=== PATIENT | male | born 1990 | race Caucasian/White ===

== ENCOUNTER 2024-04-13 23:49 | Inpatient (IN) | payer MEDICAID ==
[2024-04-14] MEDS: Ondansetron 4 MG/2 ML SDV IVPUSH ONE ×2 (00:10→08:03)
[2024-04-14] MEDS: Sodium Chloride 0.9% 1,000 ML IV SCH ×2 (00:15→03:08)
[2024-04-14] MEDS: Sodium Chloride 0.9% 10 ML Syringe FLUSH PRN (00:27)
[2024-04-14] MEDS: LORazepam 2 MG/ML SDV IVPUSH ONE (00:27)
[2024-04-14 00:30] LABS: HEMATOCRIT 49.6 % (38.3-50.1); HEMOGLOBIN 17.4 g/dL (12.9-17.7); MEAN CORPUSCULAR HGB CONC 35.1 g/dL (28.7-35.3); MEAN CORPUSCULAR VOLUME 105.6 fL (80.8-98.7); MEAN PLATELET VOLUME 8.2 fL (6.7-11.0); PLATELET COUNT,PLT 169 x10(3)uL (117-477); RED CELL DISTRIBUTION WIDTH 13.1 % (12.4-15.0); WHITE BLOOD CELL COUNT,WBC 12.3 x10-3/uL (3.2-10.1)
[2024-04-14 00:38] LABS: BLOOD UREA NITROGEN,BUN 5 mg/dL (7-18); BUN/CREATININE RATIO 7.1 (9-20); CALCIUM 8.9 mg/dL (8.6-10.2); CARBON DIOXIDE,CO2 24 mmol/L (21-32); CHLORIDE,CL 94 mmol/L (100-110); CREATININE 0.7 mg/dL (0.70-1.30); ESTIMATED GFR 125 mL/min (>60); GLUCOSE RANDOM 170 mg/dL (80-116); POTASSIUM,K 3.2 mmol/L (3.5-5.3); SODIUM,NA 135 mmol/L (135-145)
[2024-04-14] MEDS: Morphine 2 MG/ML SYRINGE IVPUSH ONE (00:41)
[2024-04-14 00:44] LABS: A/G RATIO 1.1; ALANINE AMINOTRANSFERASE,ALT 82 U/L (12-36); ALKALINE PHOSPHATASE 116 IU/L (56-112); ASPARTATE AMNIOTRANSFERASE,AST 126 IU/L (5-25); BILIRUBIN TOTAL 2.1 mg/dL (0.1-1.3); PROTEIN TOTAL,TP 7.7 g/dL (6.0-8.0)
[2024-04-14 00:54] LABS: BAND PERCENT MAN 4 % (0-6); LYMPHOCYTES PERCENT MAN 11 % (13-37); MONOCYTES PERCENT MAN 6 % (4-12); SEG NEUTROPHILS PERCENT MAN 79 % (46-82)
[2024-04-14] MEDS: Iopamidol 755 Mg/ML 100 ML Bottle IV SCH (01:18)
[2024-04-14] MEDS ORDERED: LORazepam 2 MG/ML SDV IVPUSH PRN ×2 (01:36→01:45)
[2024-04-14] MEDS ORDERED: Ondansetron 4 MG/2 ML SDV IV PRN (01:36)
[2024-04-14] MEDS: Sodium Chloride 0.9% 1,000 ML IV ONE (01:43)
[2024-04-14] MEDS ORDERED: Enoxaparin 40 MG/0.4 ML Syringe SUBCUT SCH (01:45)
[2024-04-14] MEDS: HYDROmorphone 2 MG/ML SDV IVPUSH PRN (01:55)
[2024-04-14] MEDS: Enoxaparin 40 MG/0.4 ML Syringe SUBCUT SCH (02:46)
[2024-04-14] MEDS: Pantoprazole 40 MG Vial IVPUSH ONE (03:07)
[2024-04-14] MEDS: Ondansetron 4 MG/2 ML SDV IV PRN (04:37)
[2024-04-14] MEDS: LORazepam 2 MG/ML SDV IVPUSH PRN ×2 (04:46→09:38)
[2024-04-14 06:41] LABS: MEAN CORPUSCULAR HEMOGLOBIN 37.3 pg (27.0-33.3); MEAN CORPUSCULAR HGB CONC 35.5 g/dL (28.7-35.3); MEAN CORPUSCULAR VOLUME 105.2 fL (80.8-98.7); MEAN PLATELET VOLUME 8.5 fL (6.7-11.0); PLATELET COUNT,PLT 131 x10(3)uL (117-477); RED BLOOD CELL COUNT 4.28 x10(6)uL (3.90-5.90); WHITE BLOOD CELL COUNT,WBC 9.1 x10-3/uL (3.2-10.1)
[2024-04-14 06:51] LABS: ALANINE AMINOTRANSFERASE,ALT 68 U/L (12-36); ALBUMIN 3.3 g/dL (3.5-5.2); ALKALINE PHOSPHATASE 96 IU/L (56-112); ASPARTATE AMNIOTRANSFERASE,AST 93 IU/L (5-25); BILIRUBIN TOTAL 1.8 mg/dL (0.1-1.3); CARBON DIOXIDE,CO2 26 mmol/L (21-32); CHLORIDE,CL 99 mmol/L (100-110); CREATININE 0.6 mg/dL (0.70-1.30); EST CRCL DRUG DOSING (CG) 169.42 mL/min; ESTIMATED GFR 131 mL/min (>60); GLUCOSE RANDOM 116 mg/dL (80-116); LYMPHOCYTES PERCENT MAN 8 % (13-37); MONOCYTES PERCENT MAN 4 % (4-12); POTASSIUM,K 3.3 mmol/L (3.5-5.3); PROTEIN TOTAL,TP 6.7 g/dL (6.0-8.0); SEG NEUTROPHILS PERCENT MAN 88 % (46-82); SODIUM,NA 137 mmol/L (135-145)
[2024-04-14 06:54] LABS: BLOOD UREA NITROGEN,BUN < 5 mg/dL (7-18); BUN/CREATININE RATIO 8.3 (9-20)
[2024-04-14] MEDS: NS + KCl 20mEq/L 1,000 ML IV SCH (09:30)
[2024-04-14] MEDS: Nicotine 7 MG/24 Hr Patch TRDERM SCH (16:45)
[2024-04-14] MEDS: Nicotine 14 MG/24 Hr Patch TRDERM SCH (23:35)
[2024-04-15 06:55] LABS: BASOPHILS PERCENT AUTO 0.2 % (0.3-3.8); EOSINOPHILS PERCENT AUTO 0.5 % (0.1-6.8); HEMATOCRIT 44.7 % (38.3-50.1); HEMOGLOBIN 15.8 g/dL (12.9-17.7); LYMPHOCYTES PERCENT AUTO 10.3 % (15.8-45.3); MEAN CORPUSCULAR HEMOGLOBIN 37.2 pg (27.0-33.3); MEAN CORPUSCULAR HGB CONC 35.4 g/dL (28.7-35.3); MEAN PLATELET VOLUME 9.2 fL (6.7-11.0); MONOCYTES ABSOLUTE AUTO 0.7 x10-3/uL (0.0-1.2); MONOCYTES PERCENT AUTO 7.6 % (5.5-15.2); NEUTROPHILS ABSOLUTE AUTO 7.6 x10-3/uL (1.7-6.9); NEUTROPHILS PERCENT AUTO 81.4 % (40.3-71.8); PLATELET COUNT,PLT 106 x10(3)uL (117-477); RED BLOOD CELL COUNT 4.26 x10(6)uL (3.90-5.90); RED CELL DISTRIBUTION WIDTH 12.7 % (12.4-15.0); WHITE BLOOD CELL COUNT,WBC 9.4 x10-3/uL (3.2-10.1)
[2024-04-15 07:02] LABS: INR 1.05 (1.00-1.24); PROTHROMBIN TIME 10.9 sec (9.0-11.1)
[2024-04-15 07:10] LABS: A/G RATIO 0.9; ALANINE AMINOTRANSFERASE,ALT 48 U/L (12-36); ALBUMIN 3.1 g/dL (3.5-5.2); ALKALINE PHOSPHATASE 79 IU/L (56-112); ASPARTATE AMNIOTRANSFERASE,AST 58 IU/L (5-25); BILIRUBIN DIRECT 0.41 mg/dL (0.10-0.20); BILIRUBIN TOTAL 1.4 mg/dL (0.1-1.3); CALCIUM 7.9 mg/dL (8.6-10.2); CARBON DIOXIDE,CO2 28 mmol/L (21-32); CHLORIDE,CL 97 mmol/L (100-110); CREATININE 0.6 mg/dL (0.70-1.30); EST CRCL DRUG DOSING (CG) 169.42 mL/min; ESTIMATED GFR 131 mL/min (>60); GLUCOSE RANDOM 88 mg/dL (80-116); POTASSIUM,K 3.2 mmol/L (3.5-5.3); PROTEIN TOTAL,TP 6.5 g/dL (6.0-8.0); SODIUM,NA 135 mmol/L (135-145)
[2024-04-15 07:35] LABS: BLOOD UREA NITROGEN,BUN < 5 mg/dL (7-18); BUN/CREATININE RATIO 8.3 (9-20)
[2024-04-15] MEDS: NS + KCl 20mEq/L 1,000 ML IV SCH (08:11)
[2024-04-15] MEDS: Potassium Chloride 20 MEQ in Premix Bag 1 BAG IV ONE (09:40)
[2024-04-15] MEDS: Enoxaparin 40 MG/0.4 ML Syringe SUBCUT SCH (09:41)
[2024-04-15] MEDS: Ketorolac 15 MG/ML SDV IVPUSH PRN (15:35)
[2024-04-15] MEDS: Sodium Chloride 0.9% 1,000 ML IV SCH (15:36)
[2024-04-15] MEDS: Nicotine 14 MG/24 Hr Patch TRDERM SCH (20:57)
[2024-04-16 06:38] LABS: BASOPHILS PERCENT AUTO 0.3 % (0.3-3.8); EOSINOPHILS ABSOLUTE AUTO 0.2 x10-3/uL (0.0-0.6); HEMATOCRIT 39.9 % (38.3-50.1); HEMOGLOBIN 14.2 g/dL (12.9-17.7); LYMPHOCYTES ABSOLUTE AUTO 1.2 x10-3/uL (0.5-4.5); LYMPHOCYTES PERCENT AUTO 14.9 % (15.8-45.3); MEAN CORPUSCULAR HEMOGLOBIN 37.6 pg (27.0-33.3); MEAN CORPUSCULAR HGB CONC 35.7 g/dL (28.7-35.3); MEAN CORPUSCULAR VOLUME 105.2 fL (80.8-98.7); MEAN PLATELET VOLUME 9.3 fL (6.7-11.0); MONOCYTES ABSOLUTE AUTO 0.7 x10-3/uL (0.0-1.2); MONOCYTES PERCENT AUTO 8.3 % (5.5-15.2); NEUTROPHILS ABSOLUTE AUTO 6.1 x10-3/uL (1.7-6.9); NEUTROPHILS PERCENT AUTO 74.5 % (40.3-71.8); PLATELET COUNT,PLT 95 x10(3)uL (117-477); RED BLOOD CELL COUNT 3.79 x10(6)uL (3.90-5.90); RED CELL DISTRIBUTION WIDTH 12.9 % (12.4-15.0); WHITE BLOOD CELL COUNT,WBC 8.1 x10-3/uL (3.2-10.1)
[2024-04-16 06:48] LABS: A/G RATIO 0.9; ALANINE AMINOTRANSFERASE,ALT 43 U/L (12-36); ALKALINE PHOSPHATASE 79 IU/L (56-112); ASPARTATE AMNIOTRANSFERASE,AST 49 IU/L (5-25); BILIRUBIN TOTAL 0.8 mg/dL (0.1-1.3); CALCIUM 8.2 mg/dL (8.6-10.2); CARBON DIOXIDE,CO2 28 mmol/L (21-32); CHLORIDE,CL 98 mmol/L (100-110); CREATININE 0.6 mg/dL (0.70-1.30); EST CRCL DRUG DOSING (CG) 169.42 mL/min; ESTIMATED GFR 131 mL/min (>60); GLUCOSE RANDOM 93 mg/dL (80-116); PROTEIN TOTAL,TP 6.5 g/dL (6.0-8.0); SODIUM,NA 137 mmol/L (135-145)
[2024-04-16 06:50] LABS: BLOOD UREA NITROGEN,BUN < 5 mg/dL (7-18); BUN/CREATININE RATIO 8.3 (9-20); MAGNESIUM 1.3 mg/dL (1.8-2.5)
[2024-04-16] MEDS: Magnesium Sulfate/Water Premix 4 GM in Premix Bag 1 BAG IV ONE (09:04)
[2024-04-16] MEDS: Potassium Chloride 20 MEQ Tab.ER PO ONE (09:24)
[2024-04-16] MEDS: LORazepam 1 MG Tab PO ONE (09:24)
== END 2024-04-16 12:45 | disposition home or self-care (01) | DRG 439 ==
LOC: FB.ED 23:49 → FB.MS 04-14 01:36
PROVIDERS: ADMIT Family Medicine; ATTEND Family Medicine
DX: K85.20 Alcohol induced acute pancreatitis without necrosis or infection (principal); F10.930 Alcohol use, unspecified with withdrawal, uncomplicated; K70.0 Alcoholic fatty liver; K86.89 Other specified diseases of pancreas; E87.6 Hypokalemia; E83.42 Hypomagnesemia; R03.0 Elevated blood-pressure reading, without diagnosis of hypertension
CPT/HCPCS: 36415; 74177; 80053; 80307; 82248; 83690; 83735; 84484; 85025; 85610; 94150; 99222; 99232; 99238; A9270-GY; J1171; J1650; J1885; J2060; J2270; J2405; J2470; J3475; J3480; J3490; J7030; Q9967